=== PATIENT | female | born 1975 | race Asian ===

== ENCOUNTER 2018-01-22 15:29 | Emergency (ER) | END 2018-01-22 22:20 | disposition home or self-care (01) ==

== ENCOUNTER 2018-08-28 06:04 | Day surgery (SDC) | END 2018-08-28 11:29 | disposition home or self-care (01) ==

== ENCOUNTER 2018-09-06 22:45 | Emergency (ER) | END 2018-09-07 00:30 | disposition home or self-care (01) ==

== ENCOUNTER 2019-03-20 04:24 | Emergency (ER) | payer OTHER ==
[~2019-03-20] VITALS: Wt 68.2 kg
[~2019-03-20 04:24] MED LIST: CIPR-193 PO; ERGO500014 PO; IBUP-1542 PO; POLY17PO6 PO; TIZA2TAB PO; TRAZ-111 PO; VENL25TA PO
[2019-03-20] MEDS ORDERED: HYDROmorphONE 1 MG/ML SYG IV STA (04:50)
[2019-03-20] MEDS ORDERED: KETOROLAC 15 MG INJ IV STA (04:50)
[2019-03-20] MEDS ORDERED: ONDANSETRON 4 MG INJ IV STA (04:50)
[2019-03-20] MEDS ORDERED: SOD CHLORIDE 0.9% 1,000 ML IV STA (04:50)
--- NOTE | 2019-03-20 05:06 | ERD ---
ER Documentation Chief Complaint Chief Complaint AP, VOMITING X'S 2 DAYS HPI 43-year-old female describes 1 week of abdominal discomfort worse over the past 24 to 48 hours. She describes sharp severe 8 of 10 pain to the right lower quadrant that is cramping, nonradiating. Patient denies any dysuria urgency or frequency. No nausea but has noted some vomiting. The vomiting is nonbloody nonbilious. No abdominal surgical history. ROS All systems reviewed and are negative except as per history of present illness. Medications Home Meds Active Scripts Ibuprofen* (Motrin*) 600 Mg Tab, 600 MG PO Q6H PRN for PAIN AND OR ELEVATED TEMP, #20 TAB Prov:PABLO LLANOS MD 09/07/18 Polyethylene Glycol* (Miralax*) 17 Gm Powd.pack, 17 GM PO DAILY, #7 Prov:PABLO LLANOS MD 09/07/18 Ibuprofen* (Motrin*) 600 Mg Tab, 600 MG PO Q8 PRN for PAIN AND OR ELEVATED TEMP, #15 TAB Prov:JANELL PRATT MD 01/22/18 Ciprofloxacin Hcl* (Ciprofloxacin Hcl*) 250 Mg Tablet, 250 MG PO BID, #14 TAB Prov:JANELL PRATT MD 01/22/18 Reported Medications Ergocalciferol* (Drisdol* (Vitamin D2)) 50,000 Unit Capsule, 17399 UNIT PO Q7D, CAP 10/14/15 Tizanidine Hcl* (Tizanidine Hcl*) Unknown Strength Tablet, PO DAILY for SPASTICITY, TAB 10/14/15 Trazodone Hcl* (Trazodone Hcl*) Unknown Strength Tablet, PO HS, TAB 10/14/15 Venlafaxine Hcl* (Effexor*) Unknown Strength Tablet, PO DAILY, TAB 10/14/15 Allergies Allergies: Coded Allergies: sertraline (Verified Allergy, Mild, 08/28/18) acetaminophen (Verified Allergy, Unknown, 10/14/15) fluoxetine HCl (Verified Allergy, Unknown, 10/14/15) hydrocodone bit (Verified Allergy, Unknown, 10/14/15) PMhx/Soc History of Surgery: Yes (HYSTEROSCOPY, bone marrow harvest, c section, btl, hip) Anesthesia Reaction: No Hx Neurological Disorder: Yes (fibromyalgia) Hx Respiratory Disorders: No Hx Cardiac Disorders: No Hx Psychiatric Problems: Yes (depression, anxiety) Hx Miscellaneous Medical Probl: Yes (leukemia LML, ) Hx Alcohol Use: Yes (socially) Hx Substance Use: Yes (canabis medical) Hx Tobacco Use: No FmHx Family History: No diabetes Physical Exam Vitals Vital Signs Date Temp Pulse Resp B/P (MAP) Pulse Ox O2 O2 Flow FiO2 Time Delivery Rate 03/20/19 97.2 72 18 214/80 98 04:25 (124) Physical Exam General: Uncomfortable, holding right side of abdomen Head: Normocephalic, atraumatic. Eyes: Pupils equally reactive, EOM intact ENT: Moist mucous membranes Neck: Supple, no lymphadenopathy Respiratory: Lungs clear bilaterally, no distress Cardiovascular: RRR, no murmurs, rubs, or gallops Abdominal: Soft focal tenderness of the right lower quadrant, voluntary guarding : Deferred MSK: No edema, no unilateral swelling, 5/5 strength Neurologic: Alert and oriented, moving all extremities, normal speech, no focal weakness, no cerebellar signs Skin: No rash Psych: Normal mood Result Diagram: 03/20/19 0502 Results 24 hrs Laboratory Tests Test 03/20/19 05:02 White Blood Count 20.2 10^3/ul Red Blood Count 4.61 10^6/ul Hemoglobin 12.1 g/dl Hematocrit 37.3 % Mean Corpuscular Volume 80.9 fl Mean Corpuscular Hemoglobin 26.2 pg Mean Corpuscular Hemoglobin Concent 32.4 g/dl Red Cell Distribution Width 14.9 % Platelet Count 608 10^3/UL Mean Platelet Volume 9.3 fl Immature Granulocytes % 0.600 % Neutrophils % 73.4 % Lymphocytes % 19.8 % Monocytes % 4.7 % Eosinophils % 0.9 % Basophils % 0.6 % Nucleated Red Blood Cells % 0.0 /100WBC Immature Granulocytes # 0.130 10^3/ul Neutrophils # 14.8 10^3/ul Lymphocytes # 4.0 10^3/ul Monocytes # 1.0 10^3/ul Eosinophils # 0.2 10^3/ul Basophils # 0.1 10^3/ul Nucleated Red Blood Cells # 0.0 10^3/ul Urine Color YELLOW Urine Clarity CLEAR Urine pH 6.0 Urine Specific [place] 1.015 Urine Ketones NEGATIVE mg/dL Urine Nitrite NEGATIVE mg/dL Urine Bilirubin NEGATIVE mg/dL Urine Urobilinogen NEGATIVE mg/dL Urine Leukocyte Esterase NEGATIVE [place]/ul Urine Microscopic RBC 1 /HPF Urine Microscopic WBC 2 /HPF Urine Squamous Epithelial Cells FEW /HPF Urine Bacteria FEW /HPF Urine Hemoglobin 2+ mg/dL Urine Glucose NEGATIVE mg/dL Urine Total Protein NEGATIVE mg/dl Current Medications Medications Dose Sig/Benjy Start Time Status Last (Trade) Ordered Route PRN Stop Time Admin Dose Reason Admin Sodium 1,000 ml @ Q1H STAT 03/20/19 DC Chloride 1,000 mls/hr IV 04:50 03/20/19 05:49 1 mg ONCE STAT 03/20/19 DC Hydromorphone IV 04:50 03/20/19 HCl 04:51 (Dilaudid) Ondansetron 4 mg ONCE STAT 03/20/19 DC HCl (Zofran IV 04:50 03/20/19 Inj) 04:51 Ketorolac 15 mg ONCE STAT 03/20/19 DC Tromethamine IV 04:50 03/20/19 (Toradol) 04:51 Procedures/MDM EKG, MONITORS, & DIAGNOSTIC IMAGING: CT abdomen and pelvis: PENDING Pelvic ultrasound: PENDING LAB INTERPRETATION: I reviewed the laboratory testing and it shows leukocytosis with elevated platelets consistent with acute phase reactant MEDICAL DECISION MAKING: Right lower quadrant abdominal pain with the proximal he 1 week of total symptoms. Differential is broad and includes acute appendicitis, colitis, ovarian process such as cyst versus torsion. Patient will benefit from CT imaging and ultrasound imaging to rule out acute process. ER COURSE: * Patient has significant leukocytosis. Pain is improved with medications and IV fluids. * CT and ultrasound pending at the time of signout. Patient endorsed oncoming provider to follow-up on CT imaging and ultrasound report. CONSULTATION: None DISPOSITION PLAN: Pending diagnostic imaging Departure Diagnosis: Primary Impression: Abdominal pain Abdominal location: right lower quadrant Qualified Codes: R10.31 - Right lower quadrant pain Additional Impression: Leukocytosis Leukocytosis type: unspecified Qualified Codes: D72.829 - Elevated white blood cell count, unspecified Condition: Stable MANISH MILLAN MD March 20, 2019 05:06
--- NOTE | 2019-03-20 06:32 | EN ---
Date/Time of Note Date/Time of Note DATE: 03/20/19 TIME: 06:20 ER Progress Note 03/20/2019 06:10 Endorsed to me by Dr. Carr at 06:05 pending imaging studies. Chief complaint: Abdominal pain. 43-year-old female presents the ED complaining of a one-week history of worsening abdominal pain which localized to the right lower quadrant which became worse today. Nausea, vomiting and diarrhea but no hematemesis, hematochezia or melena. Denies dysuria, hematuria, polyuria or flank pain. No vaginal discharge. No fevers or chills. ROS All systems reviewed and are negative except as per history of present illness. Medications Home Meds Active Scripts Ibuprofen* (Motrin*) 600 Mg Tab, 600 MG PO Q6H PRN for PAIN AND OR ELEVATED TEMP, #20 TAB Prov:PABLO LLANOS MD 09/07/18 Polyethylene Glycol* (Miralax*) 17 Gm Powd.pack, 17 GM PO DAILY, #7 Prov:PABLO LLANOS MD 09/07/18 Ibuprofen* (Motrin*) 600 Mg Tab, 600 MG PO Q8 PRN for PAIN AND OR ELEVATED TEMP, #15 TAB Prov:JANELL PRATT MD 01/22/18 Ciprofloxacin Hcl* (Ciprofloxacin Hcl*) 250 Mg Tablet, 250 MG PO BID, #14 TAB Prov:JANELL PRATT MD 01/22/18 Reported Medications Ergocalciferol* (Drisdol* (Vitamin D2)) 50,000 Unit Capsule, 24404 UNIT PO Q7D, CAP 10/14/15 Tizanidine Hcl* (Tizanidine Hcl*) Unknown Strength Tablet, PO DAILY for SPASTICITY, TAB 10/14/15 Trazodone Hcl* (Trazodone Hcl*) Unknown Strength Tablet, PO HS, TAB 10/14/15 Venlafaxine Hcl* (Effexor*) Unknown Strength Tablet, PO DAILY, TAB 10/14/15 Allergies Allergies: Coded Allergies: sertraline (Verified Allergy, Mild, 08/28/18) acetaminophen (Verified Allergy, Unknown, 10/14/15) fluoxetine HCl (Verified Allergy, Unknown, 10/14/15) hydrocodone bit (Verified Allergy, Unknown, 10/14/15) PMhx/Soc History of Surgery: Yes - HYSTEROSCOPY, bone marrow harvest, c section, btl, hip Hx Neurological Disorder: Yes (fibromyalgia) Hx Psychiatric Problems: Yes - depression, anxiety Hx Miscellaneous Medical Probl: Yes - leukemia Hx Alcohol Use: Yes - socially Hx Substance Use: Yes - canabis medical Hx Tobacco Use: No FmHx Family History: No diabetes Physical Exam Vitals Date Temp Pulse Resp B/P (MAP) Pulse Ox O2 O2 Flow FiO2 Time Delivery Rate 03/20/19 74 16 130/82 100 Room Air 08:20 (98) 03/20/19 78 14 119/76 98 Room Air 07:44 (90) 03/20/19 97.4 77 16 139/76 98 Room Air 06:43 (97) 03/20/19 97.2 72 18 214/80 98 04:25 (124) Physical Exam General: Alert, no acute distress. Head: Normocephalic, atraumatic. Eyes: Pupils equally reactive, EOM intact. Anicteric. ENT: Moist mucous membranes Neck: Supple, no lymphadenopathy Respiratory: Lungs clear bilaterally, no distress Cardiovascular: RRR, no murmurs, rubs, or gallops Abdominal: Soft, mild, diffuse, lower abdominal tenderness but no rebound or guarding. Negative Ferguson sign or McBurney's point tenderness. : Deferred MSK: No edema, no unilateral swelling, 5/5 strength Neurologic: Alert and oriented, no focal deficit Skin: No rash Psych: Cooperative, patient does not appear anxious or depressed. DOCUMENTS REVIEWED: ED nurse, prior ED, prior records IMAGING: PROCEDURE: CT Abdomen and pelvis without contrast. CLINICAL INDICATION: Abdominal pain TECHNIQUE: CT scan of the abdomen and pelvis without contrast was performed on a multidetector high-resolution CT scan. . Coronal and sagittal reformatted images were obtained from the axial source images. Standard CT scan of the abdomen pelvis without contrast protocols were performed. The total exam CTDI equals 9.26 mGy and the total exam DLP equals 501.85 mGy-cm. One or more of the following dose reduction techniques were used: - Automated exposure control. - Adjustment of the mA and/or kV according to patient size. Use of iterative reconstruction technique. Dicom images are available COMPARISON: Pelvic ultrasound same day FINDINGS: The kidneys are normal in size without hydronephrosis or intra renal masses bilaterally. There is a punctate 1-2 mm non-obstructing superior left renal calcified calculus. No other renal calcified calculi. No ureteral calcified calculi or dilatation. Urinary bladder unremarkable. Bicornuate otherwise unremarkable uterus. No adnexal masses. Trace free fluid in the right left adnexa. No other abdominal free fluid. Negative for intra-abdominal free air abscesses or lymphadenopathy. Stomach, small bowel, large bowel and appendix are unremarkable. Liver spleen pancreas adrenal glands and gallbladder are unremarkable. No evidence of biliary ductal dilation. Lung bases unremarkable. Aorta unremarkable. Abdominal pelvic wall unremarkable. Degenerative changes of the lumbar spine but no acute osseous findings are osteoblastic/osteolytic lesions. IMPRESSION: 1. Punctate 1-2 mm non-obstructing superior left renal calcified calculus. No other calcified urinary calculi. No obstructive uropathy bilaterally. 2. Trace free fluid in the right and left adnexa. Negative free air abscesses or lymphadenopathy. 3. No gastrointestinal disease. 4. Bicornuate uterus otherwise unremarkable. RPTAT:AAJJ Physician James Date Time Electronically viewed and signed by Physician James on 03/20/2019 06:41 BM/ PROCEDURE: Pelvic ultrasound color-flow Doppler of the adnexa. CLINICAL INDICATION: Pain TECHNIQUE: Multiple sagittal, oblique and transverse real time images were obtained of the lower abdomen and pelvis using a transabdominal as well a transvaginal approach. Color-flow Doppler of the adnexa was performed. COMPARISON: Pelvic ultrasound 01/23/2080 FINDINGS: Again noted is a bicornuate uterus measuring 8.11 x 4.12 x 4.45 cm. Heterogeneous myometrial echoes with multiple leiomyomas the largest measuring 3.3 x 2.8 x 3.1 cm. Multiple Nabothian cysts. Endometrium is heterogeneous but no definite focal lesion thickened with a maximal AP diameter 1.25 cm. The right ovary could not be visualized. The left ovary is normal in size measuring the chef passenger vessel was unable to get color Doppler of the left ovary due to the patient's pain and inability to remain motionless. The right ovary was not visualized. No adnexal masses or free fluid demonstrated . IMPRESSION: 1. Bicornuate uterus with multiple leiomyomas and Nabothian cysts. 2. Heterogeneous thickened endometrium maximal AP diameter 1.25 cm without focal lesion demonstrated. 3. Inability to demonstrate the right ovary. 4. Normal sized left ovary without focal lesion. Due to technical reasons color-flow Doppler was not able to be assessed of the left ovary. 5. No adnexal masses or free fluid demonstrated. RPTAT:AAJJ Physician James Date Time Electronically viewed and signed by Physician James on 03/20/2019 06:31 BM/ ED COURSE: IV normal saline 1 L. Ketorolac 15 mg IV. Dilaudid 1 mg/Zofran 4 mg IV. REEXAMINATION/REEVALUATION: Time: 07:45. Doing well. Tolerating PO's, abdomen soft with minimal residual tenderness. No rebound or guarding. MEDICAL DECISION MAKIN-year-old female presents the ED complaining of a one-week history of worsening abdominal pain which localized to the right lower quadrant. CBC reveals leukocytosis of 20.2 and thrombocytosis of 608,000 but no anemia. Chemistry is negative for acute electrolyte abnormalities or renal insufficiency. Liver function tests reveal a borderline elevated alk phosphatase but are otherwise unremarkable. Lipase is elevated at 664 but not consistent with pancreatitis. Urinalysis is negative for hematuria, pyuria or urinary tract infection. CT of the abdomen and pelvis reveals no evidence of appendicitis, diverticulitis, obstructive uropathy, pancreatitis, mass and obstruction significant for nonobstructive left renal calculus but is otherwise unremarkable. Ultrasound of the pelvis reveals multiple leiomyomas which are likely the etiology of her pain which but right ovary could not be evaluated and ovarian torsion, cyst and tubo-ovarian abscess could not be ruled out. Patient reported she could not tolerate the exam due to pain but now after analgesia feels she might be able to cooperate. At 08:09 patient reports that her ride is here and she does not want to wait for repeat ultrasound. Understands that the etiology of her symptoms are not established and potential, serious etiologies including but not limited to ovarian torsion and tubo-ovarian abscess are not ruled out. The patient has made the decision to leave this Emergency Department and any ongoing care against the advice of the emergency physician. The patient has been informed of and verbalized understanding of the inherent risks of this decision, including , disability and infertility. The patient explained to me the reason for wanting to sign out against medical advice which was her ride is here she feels better will follow up with her doctor. The patient was given alternative therapeutic options. The patient has the capacity to make this decision and accepts the responsibility of leaving at this time. The patient and all necessary parties have been advised that the patient may return at any time for further evaluation or treatment. The patient's condition at time of discharge is guarded. Counseled patient regarding diagnostic workup, diagnosis and need for followup. MELE MARTÍNEZ MD March 20, 2019 06:31
[2019-03-20] MEDS ORDERED: ONDA4TAB8 PO (08:13)
[2019-03-20] MEDS ORDERED: TRAM50TA2 PO (08:13)
[2019-03-20 08:20] VITALS: BP 130/82; PULSE 74; RESP 16
== END 2019-03-20 08:24 | disposition left against medical advice (07) ==
LOC: E/R 04:24
DX: D72.829 Elevated white blood cell count, unspecified (principal); R11.10 Vomiting, unspecified; R10.2 Pelvic and perineal pain; Z85.6 Personal history of leukemia
CPT/HCPCS: 36415; 74176; 76830; 76856; 80053; 81001; 83690; 84703; 85025; 96374; 96375; J1170; J1885; J2405; J7030; Z7502; Z7610